=== PATIENT | female | born 1955 | race Caucasian/White ===

== ENCOUNTER → 2016-11-21 | Outpatient (CLI) | payer BC | END | disposition home or self-care (01) | LOC: CFH 12:08 | PROVIDERS: ATTEND Specialist | DX: Z12.31 Encounter for screening mammogram for malignant neoplasm of breast (principal); Z13.820 Encounter for screening for osteoporosis; M85.89 Other specified disorders of bone density and structure, multiple sites | CPT/HCPCS: 77063; 77080; G0202 ==

== ENCOUNTER → 2017-07-03 | Outpatient (CLI) | payer BC | END | disposition home or self-care (01) | LOC: CFH 15:16 | PROVIDERS: ATTEND Nurse Practitioner | DX: M79.662 Pain in left lower leg (principal); L95.9 Vasculitis limited to the skin, unspecified ==

== ENCOUNTER → 2017-12-04 | Outpatient (CLI) | payer BC | END | disposition home or self-care (01) | LOC: CFH 12:07 | PROVIDERS: ATTEND Specialist | DX: Z12.31 Encounter for screening mammogram for malignant neoplasm of breast (principal) | CPT/HCPCS: 77067 ==

== ENCOUNTER → 2019-02-17 | Outpatient (CLI) | payer BC | END | disposition home or self-care (01) | LOC: CFH 12:10 | PROVIDERS: ATTEND Internal Medicine | DX: Z12.31 Encounter for screening mammogram for malignant neoplasm of breast (principal); M85.89 Other specified disorders of bone density and structure, multiple sites; N95.8 Other specified menopausal and perimenopausal disorders | CPT/HCPCS: 77063; 77067; 77080 ==

== ENCOUNTER 2019-11-04 10:44 | Emergency (ER) | payer BC ==
[~2019-11-04] VITALS: Ht 172.7 cm; Wt 97.0 kg
--- NOTE | 2019-11-04 11:26 | NUR ---
FIRST CONTACT WITH PT. PT STATES "I FELL ABOUT 0530. I TRIPPED BECAUSE IT WAS DARK IN THE ROOM. MY RIGHT EYE IS BLACK AND MY RIGHT SIDE ALL THE WAY DOWN HURTS." NO C/O LOC, N/V PT C/O RIGHT SIDED PAIN(ARM/FACE/BACK). PT'S AOX4. RESPS EVEN AND UNLABORED. BP/SPO2 MONITORS IN PLACE. CALL LIGHT WITHIN REACH.
--- NOTE | 2019-11-04 12:26 | NUR ---
TASK RN, COVERING MEAL BREAK. PT TO IMAGING.
--- NOTE | 2019-11-04 12:50 | NUR ---
pt back to room from ct.
[2019-11-04 13:46] VITALS: BP 142/76
--- NOTE | 2019-11-04 14:01 | NUR ---
pt resting in room. pt's aox4. resps even and unlabored.
--- NOTE | 2019-11-04 14:32 | NUR ---
Patient given discharge instructions and they have confirmed that they understand the instructions. Patient ambulatory with steady gait.
== END 2019-11-04 14:32 | disposition home or self-care (01) ==
LOC: ED 12:49
DX: S39.012A Strain of muscle, fascia and tendon of lower back, initial encounter (principal); S16.1XXA Strain of muscle, fascia and tendon at neck level, initial encounter; S00.83XA Contusion of other part of head, initial encounter; S00.11XA Contusion of right eyelid and periocular area, initial encounter; S09.90XA Unspecified injury of head, initial encounter; Z87.891 Personal history of nicotine dependence; W19.XXXA Unspecified fall, initial encounter; Y93.89 Activity, other specified; Y92.098 Other place in other non-institutional residence as the place of occurrence of the external cause; Y99.8 Other external cause status
CPT/HCPCS: 70450; 70486; 72072; 72125; 99285